=== PATIENT | female | born 1935 | race Caucasian/White ===

== ENCOUNTER 2019-01-14 14:40 | Emergency (ER) | payer MEDICARE, OTHER ==
[~2019-01-14] VITALS: Ht 154.9 cm; Wt 51.4 kg
[~2019-01-14 14:40] MED LIST: GEMF600T PO; LISI-167 PO; LISI1TAB5 PO; METF500T17 PO; OMEP-110 PO
--- NOTE | 2019-01-14 15:19 | NUR ---
PT AMBUALTED TO BR WITHOUT DIFFICULTY. INSTRUCTED ON CLEAN CATCH URINE SAMPLE.
[2019-01-14 15:34] LABS: BASOPHILS # (AUTO) 0.02 x10^3/uL (0-0.1); BASOPHILS % (AUTO) 0 % (0-1); EOSINOPHILS # (AUTO) 0.04 x10^3/uL (0-0.4); EOSINOPHILS % (AUTO) 1 % (1-7); LYMPHOCYTES # (AUTO) 1.24 x10^3/uL (1-3.4); LYMPHOCYTES % (AUTO) 24 % (22-44); MD NO; MEAN CORPUSCULAR HEMOGLOBIN 29.2 pg (27.0-34.8); MEAN CORPUSCULAR HGB CONC 32.8 g/dL (32.4-35.8); MEAN CORPUSCULAR VOLUME 89.2 fL (80-100); MEAN PLATELET VOLUME 8.5 fL (7.4-10.4); MONOCYTES # (AUTO) 0.51 x10^3/uL (0.2-0.8); MONOCYTES % (AUTO) 10 % (2-9); NEUTROPHILS # (AUTO) 3.35 x10^3/uL (1.8-6.8); NEUTROPHILS % (AUTO) 65 % (42-75); PLATELET COUNT 286 x10^3/uL (130-400); RED BLOOD COUNT 5.04 x10^6/uL (3.82-5.3); RED CELL DISTRIBUTION WIDTH 15.9 % (9.6-15.2)
[2019-01-14 15:37] LABS: MICROSCOPIC AUTO
[2019-01-14 15:40] LABS: CULTURE INDICATED? YES
[2019-01-14 15:45] LABS: ALBUMIN 4.1 g/dL (3.4-5.0); ANION GAP 9 mmol/L (5-15); CALCIUM 9.7 mg/dL (8.5-10.1); CHLORIDE 97 mmol/L (98-107); CREATININE 0.73 mg/dL (0.55-1.02)
[2019-01-14 15:49] LABS: TROPONIN I < 0.015 ng/mL (0.000-0.045)
[2019-01-14] MEDS ORDERED: METF500T27 PO (15:52)
[2019-01-14 16:41] VITALS: BP 167/84
--- NOTE | 2019-01-14 16:47 | NUR ---
D/C INSTRUCTIONS, MEDS & F/U APPT RV'WD WITH PT AND SON, THEY VERBALIZE UNDERSTANDING. RX GIVEN X1. PT AMBULATED OUT OF ED WITH SON WITHOUT DIFFICULTY.
== END 2019-01-14 16:50 | disposition home or self-care (01) ==
LOC: ED 16:32
DX: R53.1 Weakness (principal); R53.83 Other fatigue; I10 Essential (primary) hypertension; E11.9 Type 2 diabetes mellitus without complications; E78.00 Pure hypercholesterolemia, unspecified
CPT/HCPCS: 36415; 80048; 81001; 82040; 84484; 85025; 87077; 87086; 93005; 99284